=== PATIENT | female | born 1990 | race Caucasian/White ===

== ENCOUNTER 2021-10-05 19:01 | Emergency (ER) | payer OTHER, SELFPAY ==
--- NOTE | 2021-10-05 19:03 | ED.URI ---
HPI - URI/Sore Throat General Chief Complaint: Upper Respiratory Infection Stated Complaint: Sore Throat,Ear Pain Time Seen by Provider: 10/05/21 19:22 Source: patient and RN notes reviewed Mode of arrival: ambulatory Limitations: no limitations History of Present Illness HPI Narrative: 31-year-old female presents with concern for 5-day history of sore throat, ear pain. Reports she has history of allergies and takes multiple allergy medications on a regular basis. Reports rhinorrhea, postnasal drainage, cough. She denies body aches, chills, fever, sweats. She has been vaccinated for Covid and had a negative Covid test. MD elicited complaint: sore throat Related Data Home Medications Medication Instructions Recorded Confirmed azelastine 2 spray INTRANASAL DAILY 10/05/21 10/05/21 cetirizine [Zyrtec] 10 mg PO DAILY 10/05/21 10/05/21 drospirenone-ethinyl estradiol 1 tablet PO DAILY 10/05/21 10/05/21 [Vestura (28)] fluticasone propionate [Flonase 2 spray INTRANASAL DAILY 10/05/21 10/05/21 Allergy Relief] Allergies Allergy/AdvReac Type Severity Reaction Status Date / Time shellfish derived Allergy Intermediate Swelling Verified 10/05/21 19:21 Penicillins Allergy Unknown Rash Verified 10/05/21 19:21 Sulfa (Sulfonamide Allergy Unknown itching Verified 10/05/21 19:21 Antibiotics) Review of Systems Review of Systems: CONSTITUTIONAL: Denies malaise, chills, sweats, or fever. EYES: Denies visual changes, redness, or discharge. ENT: Reports rhinorrhea, congestion, otalgia and sore throat. CARDIOVASCULAR: Denies chest pain, palpitations, or edema. RESPIRATORY: Reports cough. Denies dyspnea. GASTROINTESTINAL: Denies abdominal pain, nausea, vomiting, diarrhea SKIN: Denies rash or itching. MUSCULOSKELETAL: Denies myalgia. NEUROLOGIC: Denies headache. All systems reviewed & are unremarkable except as noted in HPI and below PMFSH Comments At time of signature, agree with nursing past medical, surgical, social and family history. There is no relevant family history pertinent to the presenting complaint Exam Narrative: GENERAL: Well-appearing, well-nourished, and in no acute distress. HEAD: Normocephalic EYES: PERRLA, conjunctivae clear ENT: Nares clear, turbinates edematous and erythematous, clear discharge. Mucous membranes moist. TM pearly mitchell with dull light reflex bilaterally; no tragal tenderness. Oropharynx not erythematous without lesions. Tonsils not enlarged and without exudate, no drooling, no hoarseness, no trismus, uvula midline. NECK: Supple. No lymphadenopathy CHEST: Clear to auscultation, breath sounds equal. No wheezing, rhonchi, rales, or stridor. No respiratory distress, speaks in full sentences. HEART: Regular rate and rhythm. No murmur heard. SKIN: Warm, dry, no rash. NEURO: Alert and oriented x3. PSYCH: Normal mood and affect Course Course Emergency Course: Patient is aware of diagnosis, understands and agrees to treatment plan. Anticipatory guidance given. Patient agrees to follow-up as directed and is aware of reasons to seek care at the emergency department. Portions of this record may have been created with voice recognition software Vital Signs Vital signs: Reviewed. MDM - URI/Sore Throat MDM Narrative Medical decision making narrative: Differential diagnosis considered: Bedoya virus, strep pharyngitis, allergic rhinitis, upper respiratory tract infection, sinusitis, rhinosinusitis, nasopharyngitis. viral pharyngitis, otitis media, otitis externa, pneumonia, bronchitis, viral cough syndrome, viral syndrome, and influenza. Exam findings show no acute concerns or changes; patient is non-toxic appearing and is in no distress. Patient is appropriate for outpatient treatment and follow-up. Lab Data Attestation: I reviewed the patient's lab results. Critical Care Time Critical Care Time Critical Care Time: No Discharge Plan Discharge Clinical Impression: Upper respiratory infection Qualifier
[2021-10-05 19:12] VITALS: BP 133/62; PULSE 106; RESP 16; TEMP 36.6; O2SAT 100
== END 2021-10-05 19:35 | disposition home or self-care (01) ==
PROVIDERS: Emergency Provider Nurse Practitioner
DX: J06.9 Acute upper respiratory infection, unspecified (principal)
CPT/HCPCS: 87081; 87880; 99213; G0463

== ENCOUNTER 2022-11-09 15:59 | Emergency (ER) | payer OTHER, SELFPAY ==
[2022-11-09 16:10] VITALS: BP 141/79; PULSE 84; RESP 18; TEMP 36.6; O2SAT 100
--- NOTE | 2022-11-09 16:27 | ED.URI ---
HPI - URI/Sore Throat General Chief Complaint: Upper Respiratory Infection Stated Complaint: sore throat Time Seen by Provider: 11/09/22 16:15 Source: patient Mode of arrival: ambulatory Limitations: no limitations History of Present Illness HPI Narrative: Mojgan is a 32-year-old female patient presenting to clinic today with complaints of sore throat x2 days. She reports that she has had positive strep exposure. She denies any fever or chills. She denies any cough or runny nose. MD elicited complaint: sore throat Related Data Home Medications Medication Instructions Recorded Confirmed azelastine 137 mcg (0.1 %) nasal 2 spray intranasal DAILY 10/05/21 11/09/22 spray aerosol cetirizine 10 mg tablet (Zyrtec) 10 mg PO DAILY 10/05/21 11/09/22 fluticasone propionate 50 2 spray intranasal DAILY 10/05/21 11/09/22 mcg/actuation nasal spray,suspension (Flonase Allergy Relief) Allergies Allergy/AdvReac Type Severity Reaction Status Date / Time shellfish derived Allergy Intermediate Swelling Verified 12/08/21 07:53 nickel Allergy Unknown rash Verified 12/08/21 07:53 Penicillins Allergy Unknown Rash Verified 12/08/21 07:53 Sulfa (Sulfonamide Allergy Unknown itching Verified 12/08/21 07:53 Antibiotics) Review of Systems Review of Systems: Pertinent positives per HPI. Patient denies any fever, chills, rash, headache, visual changes, dizziness, cough, shortness of breath, chest pain, palpitations, nausea, vomiting, diarrhea, constipation, abdominal pain, or any urinary issues. [facility] Family History Family History Mother Thyroid disorder Grandparent Diabetes mellitus Heart disease Social History Social History Smoking status: Never smoker Alcohol intake: current Substance use: never Substance use type: does not use Comments At the time of my signature, I reviewed and agree with the nursing past medical, surgical, social, and family history. There is no relevant family history pertinent to the patient complaint. Exam Narrative: General: Well-developed, well nourished, in no apparent distress Head: Normocephalic, atraumatic Eyes: Pupils equally round and reactive to light bilaterally, EOM intact, sclera and conjunctive clear, no discharge, lids normal Ears: TMs intact and clear, ear canals clear, no drainage, grossly hearing normal. Nose: Nares patent, clear nasal discharge, no inflammation, no sinus tenderness. Mouth: Oral pharynx without lesions or masses, good dentition, MMM. oropharynx red Neck: Supple, trachea midline, no enlargement of anterior or posterior cervical nodes, no thyroid masses or goiter palpable. Cardio: Regular rate and rhythm, s1 and s2 normal, no murmur appreciated. Resp: Clear to auscultation bilaterally, no rhonchi, rales, wheezing or rubs Course Course Emergency Course: Portions of this record may have been created with voice recognition software. Level of Care: Express Care Visit Vital Signs Vital signs: Vital Signs Temperature 36.6 C 11/09/22 16:10 Pulse Rate 84 11/09/22 16:10 Respiratory Rate 18 11/09/22 16:10 Blood Pressure 141/79 H 11/09/22 16:10 Pulse Oximetry 100 11/09/22 16:10 Oxygen Delivery Room Air 11/09/22 16:10 Temperature 36.6 C 11/09/22 16:10 Pulse Rate 84 11/09/22 16:10 Respiratory Rate 18 11/09/22 16:10 Blood Pressure 141/79 H 11/09/22 16:10 Pulse Oximetry 100 11/09/22 16:10 Oxygen Delivery Room Air 11/09/22 16:10 Vital signs reviewed MDM - URI/Sore Throat MDM Narrative Medical decision making narrative: At the time of visit patient is resting comfortably on the exam table. Strep screen was obtained and was negative in the clinic today. I suspect patient has viral pharyngitis. Supportive measures were discussed with the patient she voiced understanding discharge ins
== END 2022-11-09 17:03 | disposition home or self-care (01) ==
PROVIDERS: Emergency Provider Nurse Practitioner Family
DX: J02.9 Acute pharyngitis, unspecified (principal)
CPT/HCPCS: 87880; 99212; G0463

== ENCOUNTER 2023-01-31 08:00 | Outpatient (NON) | payer OTHER, SELFPAY | END 2023-01-31 08:01 | disposition home or self-care (01) | PROVIDERS: Visit Provider Nurse Practitioner | DX: B07.8 Other viral warts (principal) | CPT/HCPCS: 88305 ==

== ENCOUNTER 2023-09-25 11:59 | Emergency (ER) | payer OTHER, SELFPAY ==
[2023-09-25 12:14] VITALS: BP 125/75; PULSE 90; RESP 16; TEMP 37.2; O2SAT 99
--- NOTE | 2023-09-25 12:59 | ED.URI ---
HPI - URI/Sore Throat General Chief Complaint: Upper Respiratory Infection Stated Complaint: headache,sneezing,congestion Time Seen by Provider: 09/25/23 12:51 Source: patient and RN notes reviewed Mode of arrival: ambulatory Limitations: no limitations History of Present Illness HPI Narrative: Patient presents today with a 10 day history of headache, sore throat, sinus pressure, fatigue. Currently rates her pain 4/10 and has been taking ibuprofen, Zyrtec, nasal spray, and using a Neti pot. Related Data Home Medications Medication Instructions Recorded Confirmed cetirizine 10 mg tablet (Zyrtec) 10 mg PO DAILY 10/05/21 09/25/23 fluticasone propionate 50 2 spray intranasal DAILY 10/05/21 09/25/23 mcg/actuation nasal spray,suspension (Flonase Allergy Relief) drospirenone 3 mg-ethinyl 1 tablet PO DAILY 09/25/23 09/25/23 estradiol 0.02 mg tablet (Vestura (28)) Allergies Allergy/AdvReac Type Severity Reaction Status Date / Time shellfish derived Allergy Intermediate Swelling Verified 09/25/23 12:09 nickel Allergy Unknown rash Verified 09/25/23 12:09 Penicillins Allergy Unknown Rash Verified 09/25/23 12:09 Sulfa (Sulfonamide Allergy Unknown itching Verified 09/25/23 12:09 Antibiotics) Review of Systems Review of Systems: CONSTITUTIONAL: Denies body aches, fever, chills, or sweats.+ fatigue EYES: Denies visual changes, redness, or discharge. ENT: Denies rhinorrhea, congestion, or otalgia.+ sore throat, sinus pressure CARDIOVASCULAR: Denies chest pain, palpitations, or edema. RESPIRATORY: Denies dyspnea.+ cough GASTROINTESTINAL: Denies abdominal pain, nausea, vomiting, or diarrhea. GENITOURINARY: Denies dysuria or hematuria. SKIN: Denies rash, itching, or wounds. MUSCULOSKELETAL: Denies back pain, joint pain, or myalgia. NEUROLOGIC: Denies numbness, tingling, or weakness.+ headache PSYCH: Denies depression or anxiety. [facility] Family History Family History Mother Thyroid disorder Grandparent Diabetes mellitus Heart disease Social History Social History Smoking status: Never smoker Alcohol intake: current Substance use: never Substance use type: does not use Comments At time of signature, I have reviewed and agree with nursing past medical, surgical, social and family history unless otherwise noted. Please see nursing chart for further information. There is no relevant family history pertinent to the presenting complaint Exam Narrative: GENERAL: Well-appearing, well-nourished, and in no acute distress. HEAD: Normocephalic, atraumatic. EYES: EOMI. No redness or drainage. Conjunctivae normal. ENT: Mucous membranes pink and moist. Nares clear. No rhinorrhea. TMs normal bilaterally. Throat normal. Uvula midline. Left maxillary sinus tenderness. NECK: Normal AROM. Supple. No lymphadenopathy. CHEST: No respiratory distress. Clear to auscultation. HEART: Regular rate and rhythm. No murmur appreciated. EXTREMITIES: Normal range of motion. No edema. SKIN: Warm, dry, no rash. Capillary refill normal. Normal skin turgor. NEURO: No focal deficits. Alert and oriented x3. Gait steady. PSYCH: Normal affect. No signs of depression or anxiety. Course Course Level of Care: Express Care Visit Vital Signs Vital signs: Vital Signs Temperature 98.9 F 09/25/23 12:14 Pulse Rate 90 09/25/23 12:14 Respiratory Rate 16 09/25/23 12:14 Blood Pressure 125/75 09/25/23 12:14 Pulse Oximetry 99 09/25/23 12:14 Oxygen Delivery Room Air 09/25/23 12:14 Temperature 98.9 F 09/25/23 12:14 Pulse Rate 90 09/25/23 12:14 Respiratory Rate 16 09/25/23 12:14 Blood Pressure 125/75 09/25/23 12:14 Pulse Oximetry 99 09/25/23 12:14 Oxygen Delivery Room Air 09/25/23 12:14 Reviewed MDM - URI/Sore Throat MDM Narrative Medical decision
== END 2023-09-25 13:14 | disposition home or self-care (01) ==
PROVIDERS: Emergency Provider Nurse Practitioner
DX: J01.90 Acute sinusitis, unspecified (principal)
CPT/HCPCS: 87081; 87880; 99213; G0463

== ENCOUNTER 2024-01-03 08:08 | Emergency (ER) | payer OTHER, SELFPAY ==
--- NOTE | 2024-01-03 08:16 | ED.GENADULT ---
HPI - General Adult General Chief complaint: Upper Respiratory Infection Stated complaint: Cough Source: patient, RN notes reviewed and old records reviewed Mode of arrival: ambulatory Limitations: no limitations History of Present Illness HPI narrative: 33-year-old female presents to [facility] with complaint of cough, congestion, sore throat, myalgia, feeling feverish this started on Monday. Patient taking [id number] medications with little relief. Patient denies chest pain, shortness of breath, dizziness, weakness. Related Data Home Medications Medication Instructions Recorded Confirmed cetirizine 10 mg tablet (Zyrtec) 10 mg PO DAILY PRN Congestion 10/05/21 01/03/24 fluticasone propionate 50 2 spray intranasal DAILY PRN 10/05/21 01/03/24 mcg/actuation nasal Congestion spray,suspension (Flonase Allergy Relief) Allergies Allergy/AdvReac Type Severity Reaction Status Date / Time shellfish derived Allergy Intermediate Swelling Verified 01/03/24 08:23 nickel Allergy Unknown rash Verified 01/03/24 08:23 Penicillins Allergy Unknown Rash Verified 01/03/24 08:23 Sulfa (Sulfonamide Allergy Unknown itching Verified 01/03/24 08:23 Antibiotics) Review of Systems Constitutional: Constitutional: Reports no additional constitutional complaints, Reports body ache(s), Denies chills, Denies fatigue, Reports fever(s) and Reports headache(s) Eyes: Eyes: Reports no additional eye complaints and Denies blurry vision ENT: Reports system reviewed and no additional complaints, except as documented, Denies vertigo, Denies dizziness, Denies ear discharge, Reports otalgia, Denies facial pain, Reports headache(s), Reports nasal congestion, Denies nasal discharge, Denies sinus pain, Reports sinus pressure and Reports sore throat Cardiovascular: Cardiovascular: Reports no additional cardiovascular complaints, Denies chest pain, Denies chest pain at rest, Denies rapid heart rate and Denies dyspnea Respiratory: Respiratory: Reports no additional respiratory complaints, Reports chest congestion, Reports cough, Denies pain on inspiration, Denies pain with cough and Denies dyspnea Gastrointestinal: Gastrointestinal: Denies abdominal pain, Denies diarrhea, Denies nausea and Denies vomiting Integumentary/Breasts: Skin/Breast: Denies rash Neurologic: Reports system reviewed and no additional complaints, except as documented, Denies vertigo, Denies dizziness and Denies headache(s) Endocrine: Endocrine: Denies fatigue PMFSH Family History Family History Mother Thyroid disorder Grandparent Diabetes mellitus Heart disease Social History Social History Smoking status: Never smoker Alcohol intake: current Substance use: never Substance use type: does not use Comments At the time of my signature, I reviewed and agree with the nursing past medical, surgical, social, and family history. There is no relevant family history pertinent to the patient complaint. Exam Const: General: cooperative, healthy appearing, no acute distress and well nourished Nutritional Appearance: well nourished Orientation/consciousness: patient oriented x3 Limitations: no limitations HENMT: Head: normal to inspection and normocephalic Ears: external ears normal, TM's normal bilaterally, EAC's normal and mastoids normal Face/Nose/Sinus: Normal nasal mucous membranes and turbinates present, Nasal discharge present clear, normal facial exam and No sinus tenderness Face and sinus: normal facial exam, sinuses nontender and face symmetric Mouth: Yes Normal oral and palatal mucosa present, Yes oropharynx normal and Yes moist mucous membranes Throat: tonsils normal, uvula midline, posterior oropharynx abnormal erythema and no uvular edema Eyes: General: appearance normal, both eyes and all related structures Sclera: sclerae normal Pupils: Eq
[2024-01-03 08:20] VITALS: BP 133/79; PULSE 86; RESP 18; TEMP 36.2; O2SAT 100
== END 2024-01-03 08:42 | disposition home or self-care (01) ==
PROVIDERS: Emergency Provider Registered Nurse
DX: J10.1 Influenza due to other identified influenza virus with other respiratory manifestations (principal); Z20.822 Contact with and (suspected) exposure to COVID-19
CPT/HCPCS: 87426; 87804; 99213; G0463

== ENCOUNTER 2024-09-18 12:46 | Outpatient (CLI) | payer OTHER, SELFPAY ==
--- NOTE | ~2024-09-18 | CT_ITS ---
CLINICAL INDICATION: Flank pain COMPARISON: None. TECHNIQUE: Multiple contiguous axial images of the abdomen and pelvis were performed without the admi nistration of intravenous contrast The dose-length product (DLP) was 953.90 mGy-cm. Automated exposure control and iterative reconstruction technique were employed. FINDINGS/OBSERVATIONS: Visualized lower thorax: The bilateral lung bases are clear. The heart is of normal size, without pericardial effusion. Small hiatal hernia is present. Liver: The liver demonstrates homogeneous attenuation and is not enlarged measuring 17 cm in longitudinal di mension. Gallbladder and biliary system: The gallbladder is only minimally distended, and otherwise unremarkable. Pancreas: Limited evaluation of the pancreas secondary to the lack of intravenous contrast. Spleen: The spleen demonstrates homogeneous attenuation and is not enlarged measuring 7 cm in longitudinal di mension. Kidneys: Mild left-sided hydroureteronephrosis without an obstructing calcification identified. The right kidney is unremarkable, without hydronephrosis or renal calculi Adrenal glands: Unremarkable. Gastrointestinal tract: Trace colonic diverticulosis without surrounding inflammatory change. Fecal stasis within the right colon. Appendix: The appendix is not definitively visualized. However, no pericecal inflammatory change is identified suggest the presence of acute appendicitis. Vasculature: Unremarkable. Lymph nodes: No pathologically enlarged or morphologically suspicious lymph nodes within the retroperitoneum or at the root of the mesentery. Pelvic structures: The bladder is distended, and otherwise unremarkable. The uterus is anteverted and anteflexed, and otherwise unremarkable. Above the bladder, to the right of midline is a rounded focus of fluid attenuation measuring 48 x 42 x 44 mm (anterior to posterior x medial to lateral x cranial to caudal dimension), possibly a right o varian cyst. Pelvic ultrasound may be performed for confirmation. This should be visible with a transabdominal evaluation as it is located approximately 6 cm below the level of the umbilicus, deep to the anterior abdominal wall. Body wall and musculoskeletal: No significant degenerative disease within the lower thoracic or lumbosacral spine. IMPRESSION: Mild left-sided hydroureteronephrosis, possibly secondary to bladder distention without an obstructin g calculus visualized. To the right of midline above the bladder is a almost 5 cm focus of fluid attenuation for which focus ed ultrasound is suggested for confirmation of its origin (possibly right ovarian). Reviewed, dictated and finalized at location A. AGATION WORKER IMPRESSION: Mild left-sided hydroureteronephrosis, possibly secondary to bladder distention without an obstructing calculus visualized. To the right of midline above the bladder is a almost 5 cm focus of fluid atten uation for which focused ultrasound is suggested for confirmation of its origin (possibly right ovarian).
== END 2024-09-18 12:47 | disposition home or self-care (01) ==
PROVIDERS: PCP Family Medicine; Visit Provider Family Medicine
DX: E28.2 Polycystic ovarian syndrome (principal); N13.30 Unspecified hydronephrosis; R93.5 Abnormal findings on diagnostic imaging of other abdominal regions, including retroperitoneum; R10.9 Unspecified abdominal pain
CPT/HCPCS: 74176

== ENCOUNTER 2024-09-25 14:29 | Outpatient (CLI) | payer OTHER, SELFPAY ==
--- NOTE | ~2024-09-25 | US_ITS ---
EXAM: PELVIC ULTRASOUND HISTORY: N83.209 - Unspecified ovarian cyst, unspecified side COMPARISON: . Reference is also made to the CT examination of the abdomen and pelvis dated 09/18/2024 FINDINGS: UTERUS: 7.6 x 2.4 x 3.8 cm. The uterus is anteverted and anteflexed. The endometrial complex measures 2.1 mm. RIGHT OVARY: What is measured as the right ovary measures 6.4 x 3.9 x 3.5 cm. This focus is of mixed echogenicity without internal vascularity, and sonographically suggest a cyst. No Doppler interrogation is detected on the submitted images LEFT OVARY: The left ovary is unremarkable in echogenicity and size measuring 2.9 x 1.3 x 2.3 cm No Doppler interrogation is included on the submitted images. No free fluid is identified within the pelvis. IMPRESSION: Markedly limited evaluation of the pelvis, as detailed above. Six-week ultrasound follow-up is suggested for this premenopausal patient with a right ovarian cyst b etween 5 to 7 cm in size. Reviewed, dictated and finalized at location A. EL CLIPPER IMPRESSION: Markedly limited evaluation of the pelvis, as detailed above. Six-week ultrasound follow-up is suggested for this premenopausal patient with a right ovarian cyst between 5 to 7 cm in size.
== END 2024-09-25 14:30 | disposition home or self-care (01) ==
LOC: MICIMG 14:30
PROVIDERS: PCP Obstetrics & Gynecology Gynecology; Visit Provider Family Medicine
DX: N83.209 Unspecified ovarian cyst, unspecified side (principal)
CPT/HCPCS: 76856

== ENCOUNTER 2024-11-04 14:06 | Outpatient (CLI) | payer OTHER, SELFPAY ==
--- NOTE | ~2024-11-04 | US_ITS ---
US pelvic complete Ordering provider: Svetlana Peña MD History: . Ovarian cyst f/u . Comparison: None. Technique: Transabdominal and endovaginal ultrasound of the pelvis (Doppler ultrasound interrogation techniques used as needed for this exam.) FINDINGS: CERVIX: Normal. UTERUS: Measures 7x 2.6x 4.7 cm in length which is within normal limits and is anteverted. No myomet rial masses. ENDOMETRIUM: Normal in thickness measuring 5 mm. No endometrial masses, cysts or fluid. CUL DE SAC: No free fluid. RIGHT OVARY: Normal in size measuring 2.3x 2.1x 2.1 cm. Normal echotexture. Doppler vascular flow pre sent. LEFT OVARY: Normal in size measuring 3.3x 1.8 x 3.1 cm. Normal echotexture. Doppler vascular flow present. ADNEXA: Normal. No mass. IMPRESSION: normal pelvic ultrasound. Reviewed, dictated and finalized at location A. ING MACHINE OPERATOR IMPRESSION: normal pelvic ultrasound.
== END 2024-11-04 14:07 | disposition home or self-care (01) ==
PROVIDERS: PCP Obstetrics & Gynecology Gynecology; Visit Provider Obstetrics & Gynecology Gynecology
DX: N83.201 Unspecified ovarian cyst, right side (principal)
CPT/HCPCS: 76856

== ENCOUNTER 2024-12-03 15:48 | Outpatient (CLI) | payer OTHER, SELFPAY ==
--- NOTE | ~2024-12-03 | CT_ITS ---
EXAMINATION: CT abdomen pelvis wo con DATE: 12/03/2024 16:06 INDICATION: Hydronephrosis TECHNIQUE: Computed tomography (CT) of the abdomen and pelvis was performed without intravenous contr ast. Automated exposure control and iterative reconstruction technique were employed. The dose-length product was 774.99 mGy-cm. COMPARISON: CT dated 09/18/2024 and ultrasound dated 11/04/2024. FINDINGS: Lung bases are clear. Heart size is normal. No pericardial or pleural effusion. Liver, decompressed g allbladder, spleen, pancreas, bilateral adrenal glands and kidneys are normal. No urolithiasis or hyd ronephrosis. Bladder, uterus and right adnexa are unremarkable. 3.3 cm left ovarian cyst/follicle whi ch is new since ultrasound dated 11/04/2024. Bowels including the appendix are normal. No free intrap eritoneal gas or fluid. No pathologically enlarged abdominal or pelvic lymphadenopathy. IMPRESSION: 1. No urolithiasis, hydronephrosis or other acute intra-abdominal/pelvic process. Reviewed, dictated and finalized at location A. OCULTURAL ANTHROPOLOGY PROFESSOR IMPRESSION: 1. No urolithiasis, hydronephrosis or other acute intra-abdominal/pelvic proces s.
== END 2024-12-03 15:49 | disposition home or self-care (01) ==
LOC: MICIMG 15:49
PROVIDERS: PCP Family Medicine; Visit Provider Family Medicine
DX: N13.30 Unspecified hydronephrosis (principal); N83.209 Unspecified ovarian cyst, unspecified side; R10.9 Unspecified abdominal pain
CPT/HCPCS: 74176